=== PATIENT | male | born 1985 ===

== ENCOUNTER 2017-09-24 17:32 | Emergency (ER) | payer SELFPAY ==
[2017-09-24 18:55] VITALS: BP 136/89
[2017-09-24] MEDS ORDERED: NACL 0.9% 500 ML 500 ML IV ONE (18:55)
[2017-09-24] MEDS ORDERED: TYLENOL ONE (19:05)
[2017-09-24] MEDS ORDERED: TYLENOL PO ONE (19:24)
[2017-09-24 19:47] LABS: Basophils % (Auto) 0.2 % (0.0-1.8); Eosinophils % (Auto) 0.2 % (0.0-4.3); Lymphocytes # (Auto) 1.1 K/mm3 (1.2-5.4); Lymphocytes % (Auto) 8.9 % (13.4-35.0); Mean Corpuscular HGB Conc 34 % (32-34); Mean Corpuscular Hemoglobin 31 pg (28-32); Mean Corpuscular Volume 91 fl (84-94); Monocytes # (Auto) 1.3 K/mm3 (0.0-0.8); Monocytes % (Auto) 10.2 % (0.0-7.3); Platelet Count 274 K/mm3 (140-440); Red Blood Count 4.85 M/mm3 (3.65-5.03); Red Cell Distribution Width 12.4 % (13.2-15.2)
[2017-09-24 20:03] LABS: INR 0.95 (0.87-1.13)
[2017-09-24 20:10] LABS: Alanine Aminotransferase 13 units/L (7-56); BUN/Creatinine Ratio 13; Blood Urea Nitrogen 12 mg/dL (9-20); Calcium 8.9 mg/dL (8.4-10.2); Hemolysis Index 7
--- NOTE | 2017-09-24 20:11 | XRay Report ---
FINAL REPORT EXAM: XR KNEE 3V RT HISTORY: RIGHT KNEE INFECTION AND PAIN TECHNIQUE: 3 views of right knee. PRIORS: None. FINDINGS: No acute fracture, dislocation or obvious osseous destruction. Joint spaces maintained. Diffuse soft tissue edema, most pronounced in the anterior infrapatellar for pretibial region. IMPRESSION: 1. No acute osseous abnormality. 2. Soft tissue edema.
--- NOTE | 2017-09-24 20:12 | XRay Report ---
FINAL REPORT EXAM: XR CHEST 1V AP HISTORY: possible Sepsis TECHNIQUE: Single, portable chest x-ray. PRIORS: None. FINDINGS: Cardiac and mediastinal silhouette within normal limits. Lungs are normally expanded, without significant vascular congestion. No focal consolidation or apparent pneumothorax. Bony thorax grossly unremarkable. IMPRESSION: 1. No acute consolidation.
[2017-09-25 00:01] LABS: Bilirubin,Urine NEG (Negative); Blood,Urine NEG (Negative); Color,Urine Yellow (Yellow); Mucus,Urine 1+ /HPF; Protein,Urine <15 mg/dL mg/dL (Negative); Urobilinogen,Urine < 2.0 mg/dL (<2.0)
== END 2017-09-24 20:48 | disposition left against medical advice (07) ==
LOC: EDSEX → ED 17:32
DX: M25.461 Effusion, right knee (principal); J45.909 Unspecified asthma, uncomplicated; Z53.21 Procedure and treatment not carried out due to patient leaving prior to being seen by health care provider; Z87.891 Personal history of nicotine dependence
CPT/HCPCS: 36415; 71045; 80053; 81001; 82140; 82805; 85025; 85610; 87040; 87086; 93005; 93010